=== PATIENT | male | born 1935 | race Caucasian/White ===

== ENCOUNTER → 2020-07-07 | Outpatient (CLI) | payer MEDICARE ==
[2016-05-06 09:27] VITALS: BP 148/62
[~2020-07-07] MED LIST: ASPI-886 PO; Aspirin PO; CLOP75TA57 PO; LEVO50TA5 PO; LISI5TAB PO; LOVA20TA2 PO; LOVA40TA2 PO; MULT-445 PO; Metoprolol Tartrate PO; NITR0.4T24 SL; TICA90TA PO; VERA120C2 PO
--- NOTE | 2020-07-07 12:37 | CARD ---
MR#: [id number] Date of Study: 07/07/2020 Ordering Physician: MOMO VILLARREAL, Referring Physician: MOMO VILLARREAL, Tech: [id number] APPROVED REPORT EXAM: Two-dimensional and M-mode echocardiogram with Doppler and color Doppler. Other Information Quality : FairHR: 40bpm Rhythm : BradycardiaTechnically limited study due to obesity INDICATION History of SD, stents. 2D DIMENSIONS RVDd3.5 (2.9-3.5cm)IVSd1.1 (0.7-1.1cm) Aortic Root(2D)3.4 (2.0-3.7cm)LVDd5.1 (3.9-5.9cm) LVOT Diameter2.3 (1.8-2.4cm)PWd1.0 (0.7-1.1cm) LVDs3.4 (2.5-4.0cm)FS (%) 33.2 % SV77.2 mlLVEF(%)61.5 (>50%) Aortic Valve AoV Peak Bari.145.6cm/Miya Peak GR.8.5mmHg LVOT Peak Bari.85.1cm/sAVA (VMAX)2.51cm2 Mitral Valve MV E Zuvelhqh98.7cm/sMV DECEL [id number] MV A Kjxaxllx42.8cm/sE/A Ratio0.8 MV A [id number] Pulmonary Valve PV Peak Afnvepui87.2cm/s Pulmonary Vein S1 Vdrjogwl71.6cm/sD2 Nsjoayvb91.7cm/s LEFT VENTRICLE The left ventricle is normal size. There is normal left ventricular wall thickness. Left ventricle sy stolic function is normal. The Ejection Fraction is 55%. There is normal LV segmental wall motion. Tr ansmitral Doppler flow pattern is Grade I-abnormal relaxation pattern. RIGHT VENTRICLE The right ventricle is normal size. The right ventricular systolic function is normal. ATRIA The left atrium is mildly dilated. The right atrium size is normal. The interatrial septum is intact with no evidence for an atrial septal defect or patent foramen ovale as noted on 2-D or Doppler imagi ng. AORTIC VALVE The aortic valve is normal in structure. Leaflets are thickened and calcified. No aortic regurgitatio n. No aortic valvular stenosis. MITRAL VALVE The mitral valve is normal in structure and function. There is no mitral valve stenosis. Trace mitral regurgitation. TRICUSPID VALVE The tricuspid valve is normal in structure and function. No tricuspid valve regurgitation noted. Unab le to assess PA pressures. PULMONIC VALVE The pulmonary valve is normal in structure and function. Trace pulmonic valvular regurgitation. GREAT VESSELS The aortic root is normal in size. The ascending aorta is normal in size. The IVC was not visualized. PERICARDIAL EFFUSION There is no evidence of significant pericardial effusion. Critical Notification Critical Value: No <Conclusion> Left ventricle systolic function is normal. The Ejection Fraction is 55%. There is normal LV segmental wall motion. Transmitral Doppler flow pattern is Grade I-abnormal relaxation pattern. Trace mitral regurgitation. There is no evidence of significant pericardial effusion. Signed by : Josemanuel Finn, Electronically Approved : 07/07/2020 12:36:39
== END ==
LOC: ECHO 07:38
PROVIDERS: ATTEND Internal Medicine Cardiovascular Disease
DX: I35.1 Nonrheumatic aortic (valve) insufficiency (principal); I21.3 ST elevation (STEMI) myocardial infarction of unspecified site
CPT/HCPCS: 93306

== ENCOUNTER → 2021-12-28 | Outpatient (CLI) | payer MEDICARE ==
[2016-05-06 09:27] VITALS: BP 148/62
[~2021-12-28] MED LIST changes: +CLOP75TA PO; +GABA300C18 PO; +LIDOCAINE 2% VISCOUS 15 ML SOLUTION. ONE; +LISI5TAB15 PO; +TRAM50TA PO
--- NOTE | 2021-12-28 16:37 | PDOC1 ---
INITIAL PAIN CONSULT DATE OF SERVICE: DOS: DATE: 12/28/21 TIME: 16:30 CHIEF COMPLAINT: Chief Complaint: Left-sided facial pain HISTORY OF PRESENT ILLNESS: 86-year-old male presents with history of pain in the left side of the face for about 3 years now originally starting in 1955 he was injured and active [employer] duty when he fell up on a jagged piece of steel which cut him just over the left eyebrow patient reports he has significant pain in the eyebrow as well as the forehead for several years after that but the pain resolved eventually and over the past 3 years had pain more in the front of the inferior orbit and the lateral aspect of the nose over the upper palate patient reports comes and goes without any specific patterns sometimes wakes him from sleep at night sometimes he sleeps through the night no specific temperatures have seem to affect it whether it is present or not no activity seems to affect it as well generally does not awaken him at night but occasionally will patient reports he has been taking gabapentin 600 mg 3 times daily without any significant reduction in the pain also tried meloxicam without any reduction in the pain patient reports a stabbing pain can be shooting comes and goes when it is present that he can press on his left congregational and decrease the pain especially in the area over the left forehead. Patient reports no visual disturbances no difficulty breathing no sinus congestion no tooth abscesses or any other dental difficulties that he does wear full set of dentures. PAST MEDICAL HISTORY: PMH: Arthritis, hypertension, cigarette smoking quit 40 years ago, bradycardia PREVIOUS SURGERIES: Past Surgical Hx: Bilateral cataract extraction, tonsillectomy, lumbar fusion CURRENT MEDICATIONS: Current Meds: Active Scripts Medications Dose Route/Sig Max Daily Dose Days Date Category Clopidogrel (Clopidogrel Bisulfate) 75 Mg Tablet 75 Mg PO BID 12/28/21 Reported Gabapentin (Gabapentin) 300 Mg Capsule 600 Mg PO TID 12/28/21 Reported Lisinopril 5 Mg Tablet 1 Tab PO DAILY 12/28/21 Reported Tramadol Hcl 50 Mg Tablet 50 Mg PO BID PRN 12/28/21 Reported Levothyroxine Sodium 50 Mcg Tablet 1 Tab PO DAILY 05/05/16 Reported Prinivil (Lisinopril) 5 Mg Tablet 5 Mg PO DAILY 02/04/14 Rx ALLERGIES; Allergies: Coded Allergies: No Known Drug Allergies (Unverified , 02/01/14) FAMILY HISTORY: Family Hx: No major medical conditions that he is aware of. SOCIAL HISTORY: Social Hx: Patient drinks 1 glass of alcohol with an evening meal most days does not smoke does not use any illegal illicit or recreational drugs is lives with his spouse lives locally in [facility] and is currently retired. REVIEW OF SYSTEMS: ROS: Positive for those items mentioned in history of present illness, all systems are reviewed, otherwise negative ,and are complete full and well-documented on patient's chart. PHYSICAL EXAM: VS: Blood pressure is 169/82 pulse 44, respirations 18 temperature 98.6 F height is 6 foot weight is 250 pounds. PE: PHYSICAL EXAMINATION: GENERAL: The patient is awake, alert, oriented, appropriate, very pleasant in demeanor, patient accompanied by his . HEENT: Shows normocephalic, atraumatic. Extraocular movements are intact and symmetrical. Pupils are equal, round, reactive to light and accommodation. Oral cavity: Mucous membranes moist and pink. Edentulous. Minor tenderness with palpation over the left lateral nares over the hard palate and maxilla but without radiation. Tenderness with palpation over the left supraorbital ridge with no radiation but with tenderness at the point of palpation mid supraorbital ridge on the left only right side is nontender. NECK: Shows anterior throat supple without palpable lymphadenopathy noted. Swallow reflex symmetrical. CHEST: Shows normal on inspection. Breath sounds are clear bilaterally, no rales rhonchi or wheezes auscultated. HEART: Shows S1, S2 clear. No murmurs auscultated. ABDOMEN: Soft, nontender, nondistended. No palpable organomegaly is noted. BACK: Shows spine grossly in the midline. Normal-appearing cervical lordotic curvature. There is slightly increased thoracic kyphosis, some minor flattening of the lumbar lordotic curvature. EXTREMITIES: No abnormalities upper and lower bilaterally. SKIN: Shows warm and dry, good turgor. No edema. No sores, rashes or bruising throughout. IMPRESSION: Impression: 86-year-old male with 3-year history of atypical facial pain left-sided without specific pattern but significant in pain intensity. Arthritis Hypertension Bradycardia Plan: Options were discussed with patient and patient's spouse recovered him at his visit today. We discussed medication management as well as interventional techniques. Patient like to pursue interventional techniques we discussed left-sided sphenopalatine ganglion block using description as well as anatomical models to describe the procedure. Patient would like to proceed. We discussed risks including not limited to bleeding infection possibility of spread of local anesthetic and numbness as well as numbness in the nasopharynx and potential aspiration risk as well as poor results regarding pain control. Patient understands and wishes to proceed. Patient will return to clinic in approximately 3 weeks for follow-up, was counseled as to return appointment, active level, and side effect to be aware of. Patient supine position using nasal swabs cotton-tipped and 2% viscous lidocaine swabs were soaked in lidocaine and x2 inserted via the left nares past the turbinates in a perpendicular angle to the table to the posterior aspect of the nasopharyngeal sinus. Additional 2% viscous lidocaine was then applied to the probe stick x3 over a 25-minute period. After 25 minutes, nasal swabs were removed. Patient tolerated the procedure well and had no immediate complications. MARIANNE GOODWIN MD December 28, 2021 16:37
--- NOTE | 2021-12-28 16:38 | PDOC4 ---
Procedure Note: ICD 10 Code: ICD 10 Code: G50.1 Procedure Note: Patient was consented for left-sided sphenopalatine ganglion block transnasal approach. Risk were discussed including but not limited to bleeding infection possibility of extravasation of local anesthetic and numbness possible numbness of the nasopharynx and aspiration risk as well as poor results regarding pain control. Patient understands wishes to proceed. Patient supine position using nasal swabs cotton-tipped and 2% viscous lidocaine swabs were soaked in lidocaine and x2 inserted via the left nares past the turbinates in a perpendicular angle to the table to the posterior aspect of the nasopharyngeal sinus. Additional 2% viscous lidocaine was then applied to the probe stick x3 over a 25-minute period. After 25 minutes, nasal swabs were removed. Patient tolerated the procedure well and had no immediate complications. MARIANNE GOODWIN MD December 28, 2021 16:38
== END | disposition home or self-care (01) ==
LOC: PNCL 14:30
PROVIDERS: ATTEND Anesthesiology
DX: G50.1 Atypical facial pain (principal); M19.90 Unspecified osteoarthritis, unspecified site; I10 Essential (primary) hypertension; I25.10 Atherosclerotic heart disease of native coronary artery without angina pectoris; E78.00 Pure hypercholesterolemia, unspecified; E03.9 Hypothyroidism, unspecified; Z79.899 Other long term (current) drug therapy; Z98.890 Other specified postprocedural states; Z87.891 Personal history of nicotine dependence; Z72.89 Other problems related to lifestyle
CPT/HCPCS: 64505